=== PATIENT | female | born 1970 | race Caucasian/White ===

== ENCOUNTER 2022-06-30 09:56 | Emergency (ER) | payer OTHER, SELFPAY ==
[2022-06-30] MEDS ORDERED: Boostrix 0.5 ML (Tdap) VIAL (>/=7 yrs of age) ONE (11:14)
[2022-06-30] MEDS ORDERED: HYDROcodone/Acetaminophen 5/325 mg Tablet ONE (11:14)
[2022-06-30] MEDS ORDERED: Lidocaine 1% w/Epinephrine 1:100K 20 ML VIAL ONE (11:17)
== END 2022-06-30 12:38 | disposition home or self-care (01) ==
LOC: BURERS 09:56
DX: S41.112A Laceration without foreign body of left upper arm, initial encounter (principal); S71.131A Puncture wound without foreign body, right thigh, initial encounter; I10 Essential (primary) hypertension; F17.210 Nicotine dependence, cigarettes, uncomplicated; W54.0XXA Bitten by dog, initial encounter; Z23 Encounter for immunization
CPT/HCPCS: 90471; 90715; 99283

== ENCOUNTER 2022-07-10 16:08 | Emergency (ER) | payer SELFPAY | END 2022-07-10 16:33 | disposition home or self-care (01) | LOC: BURERS 16:08 | DX: S51.812D Laceration without foreign body of left forearm, subsequent encounter (principal); I10 Essential (primary) hypertension; F17.210 Nicotine dependence, cigarettes, uncomplicated ==